=== PATIENT | male | born 1945 | race Caucasian/White ===

== ENCOUNTER 2016-07-10 09:47 | Outpatient (CLI) | payer MEDICARE ==
[~2016-07-10] VITALS: Ht 172.7 cm; Wt 68.0 kg
[2016-07-10] MEDS ORDERED: BUPIVACAINE 0.25% 30 ML (SENSORCAINE) VIAL ONE (10:30)
[2016-07-10] MEDS ORDERED: TRIAMCINOLONE ACET (KENALOG-40) 40 MG/ML 1 ML VIAL ONE (10:30)
[2016-07-10 10:42] VITALS: BP 154/77
[2016-07-10 11:12] VITALS: BP 162/78
--- NOTE | 2016-07-10 13:11 | Pain Medicine-Procedure ---
Procedure Pre-Op/Post-Op Diagnosis Diagnosis: disc disorder with radiculopathy, lumbar Indications for Operation Low back and hip pain Attending Surgeon Pino Procedure Date of Service: July 10, 2016 Procedure: Lumbar Epidural Steroid Injection at the L5/S1 Level under Fluoroscopic Guidance and right sacroiliac joint injection Procedure: Patient was identified in the holding area. After risks, benefits, and alternatives were discussed with the patient, informed consent was obtained. Patient was brought to the fluoroscopy suite and placed prone on the procedure room table. A time out was performed. Vital signs were monitored throughout the procedure. The patients low back was prepped and draped in the usual sterile fashion. The patients skin was anesthetized using 2% Lidocaine. A Tuohy needle was inserted and advanced to the L5-S1 epidural space under fluoroscopic guidance using the loss of resistance technique and intermittent projection of fluoroscopy. There was no paresthesia with needle placement. The needle position was confirmed in both the AP and lateral view. After negative aspiration 2ml of non-ionic contrast was injected under live fluoroscopy which showed good spread of the contrast in the epidural space at the appropriate level, there was no intravascular or subarachnoid spread. Again, after negative aspiration for heme or CSF, 2 ml of 0.25% Bupivicaine, 2ml of preservative free normal saline, and 80mg of Kenalog was injected. The needle was removed and a sterile bandage was placed. Attention was then directed to the right sacroiliac joint which was identified under fluoroscopic guidance. The skin overlying the posterior inferior one third of the sacroiliac joint was anesthetized with 1 percent lidocaine and a 22 -gauge 3-1/2 inch needle was inserted and advanced into the joint. Following negative aspiration a total of 40 mg of Kenalog and 2 mL of 0.25 percent bupivacaine was injected. Needle was flushed with lidocaine and removed. Sterile bandage was applied. Patient tolerated the procedures well with no apparent complications. Complications None PRINCE KITCHEN MD July 10, 2016 1:11 pm
== END 2016-07-10 11:15 | disposition home or self-care (01) ==
LOC: CARD 09:47
PROVIDERS: ATTEND Pain Medicine Pain Medicine
DX: M53.3 Sacrococcygeal disorders, not elsewhere classified (principal); M51.16 Intervertebral disc disorders with radiculopathy, lumbar region
CPT/HCPCS: 27096; 62323